=== PATIENT | male | born 1980 | race Caucasian/White ===

== ENCOUNTER 2017-02-15 22:19 | Emergency (ER) | payer SELFPAY ==
[2017-02-15 22:35] VITALS: BP 135/90; PULSE 78; RESP 18; TEMP 97.9
--- NOTE | 2017-02-15 22:49 | ED ---
Wound/Laceration HPI - General Chief Complaint: Wound/Laceration Stated Complaint: pinkie on right hand laceration Time Seen by Provider: 02/15/17 22:28 Source: patient Mode of arrival: ambulatory Limitations: no limitations - History of Present Illness Initial Comments: 36-year-old male patient presents to emergency department today for evaluation of a right hand laceration on the ulnar surface at the base of the right fifth finger. Patient states he was doing dishes, he was cleaning a glass didn't realize that it was broken and sliced his finger. Patient denies any numbness or tingling to the finger, patient has full range of motion of the finger. He states his last tetanus vaccination was within 5 years. Patient is also complaining of right lower dental pain. States that for the last couple days he has had severe pain to the area. Patient states that a while ago he broke a tooth off. States he is trying to get in to see the dentist however ibuprofen is not helping his pain at this point. He denies any difficulty swallowing or opening his mouth. He is requesting a dental block. Patient denies any recent fever, chills, shortness breath, chest pain, abdominal pain, nausea/vomiting/ diarrhea, back pain, numbness, tingling, hematuria, headache, or visual changes , or any other complaints. - Related Data Previous Rx's Medication Instructions Recorded Acetaminophen-Codeine 300-30mg 1 tab PO Q6H PRN #15 tablet 02/15/17 [Tylenol #3] Penicillin V Potassium [Pen Vee K] 500 mg PO QID #40 tab 02/15/17 Allergies Allergy/AdvReac Type Severity Reaction Status Date / Time No Known Allergies Allergy Verified 02/15/17 22:32 Review of Systems ROS Statement: Those systems with pertinent positive or pertinent negative responses have been documented in the HPI. ROS Other: All systems not noted in ROS Statement are negative. Past Medical History Past Medical History: No Reported History Additional Past Medical History / Comment(s): kidney stones History of Any Multi-Drug Resistant Organisms: None Reported Past Surgical History: Adenoidectomy, Hernia Repair, Tonsillectomy Past Psychological History: No Psychological Hx Reported Smoking Status: Never smoker Past Alcohol Use History: Occasional Past Drug Use History: None Reported General Exam Limitations: no limitations General appearance: alert, in no apparent distress Eye exam: Present: normal appearance, PERRL, EOMI. Absent: scleral icterus, conjunctival injection, periorbital swelling ENT exam: Present: normal exam, normal oropharynx, mucous membranes moist, other (Fractured tooth #32 Valdes Type 2. No surrounding erythema or gingival hyperplasia. ) Neck exam: Present: normal inspection. Absent: tenderness, meningismus, lymphadenopathy Respiratory exam: Present: normal lung sounds bilaterally. Absent: respiratory distress, wheezes, rales, rhonchi, stridor Cardiovascular Exam: Present: regular rate, normal rhythm, normal heart sounds. Absent: systolic murmur, diastolic murmur, rubs, gallop, clicks Extremities exam: Present: full ROM, normal capillary refill, other (1 cm laceration to the ulnar surface of the hand at the base of the right fifth finger. Full range of motion of the finger, skin pink, warm, and dry. Cap refill to the pinky is less than 3 seconds.). Absent: normal inspection, tenderness, pedal edema, joint swelling, calf tenderness Back exam: Present: normal inspection Neurological exam: Present: alert, oriented X3, CN II-XII intact Psychiatric exam: Present: normal affect, normal mood Skin exam: Present: warm, dry, intact, normal color. Absent: rash Course Vital Signs 02/15/17 22:32 Temperature 97.9 F Pulse Rate 78 Respiratory 18 Rate Blood Pressure 135/90 O2 Sat by Pulse 95 Oximetry Procedures - Procedures Initial comment: Oral nerve block for dental pain: Inferior alveolar nerve block performed on the right side. Landmarks palpated, 3 mL of bupivacaine was instilled. Patient tolerated procedure well with no complications. - Laceration Laceration #1 Consent Obtained: verbal consent Time Out Performed: Yes Indication: laceration Site: hand (ulnar aspect of the hand at the base of the fifth finger.) Size (cm): 1 Description: linear Depth: simple, single layer Anesthetic Used: lidocaine 1% Anesthesia Technique: local infiltration Amount (mls): 2 Pre-repair: irrigated extensively Type of Sutures: nylon Size of Sutures: 3-0, 5-0 Number of Sutures: 2 Patient Tolerated Procedure: well, no complications Medical Decision Making - Medical Decision Making 36-year-old male patient presented for evaluation of right hand laceration and right lower dental pain. 2 sutures were placed after irrigation of the hand laceration. Patient neurovascularly intact. Inferior alveolar nerve block performed for dental pain. Patient did start to have relief of pain prior to discharge. Patient was instructed to follow up with a dentist tomorrow for recheck. Given a prescription for penicillin as well as Tylenol No. 3 for pain control. Patient given laceration and suture care. Educated regarding signs and symptoms of infection. Instructed to return in 7 days for suture removal. Instructed to follow-up with his primary care physician for recheck in 1-2 days. Instructed to return really for any new, worsening, or concerning symptoms. Patient verbalized understanding and agreed with this plan. Disposition Clinical Impression: Laceration of hand, Pain, dental Disposition: HOME SELF-CARE Condition: Good Instructions: Care For Your Stitches (ED), Laceration (ED), Dental Caries (ED) , Toothache (ED) Additional Instructions: Keep wound clean and dry. Wash twice daily with warm soapy water. Do not submerse in water including sinks, pools, lakes, or ponds. Return to have your stitches removed in 7 days. Follow-up with dentist tomorrow. Follow up with primary care physician in 1-2 days for recheck. Return immediately for any new, worsening, or concerning symptoms. Prescriptions: Acetaminophen-Codeine 300-30mg [Tylenol #3] 1 tab PO Q6H PRN #15 tablet PRN Reason: Pain Penicillin V Potassium [Pen Vee K] 500 mg PO QID #40 tab Referrals: None,Stated [Primary Care Provider] - 1-2 days Time of Disposition: 23:13
[2017-02-15] MEDS ORDERED: BUPIVACAINE (PF) 0.5% 30 ML VIAL SQ STA (22:58)
== END 2017-02-15 23:20 | disposition home or self-care (01) ==
LOC: EC 22:19
DX: S61.216A Laceration without foreign body of right little finger without damage to nail, initial encounter (principal); K08.89 Other specified disorders of teeth and supporting structures; W25.XXXA Contact with sharp glass, initial encounter; Y93.G1 Activity, food preparation and clean up
CPT/HCPCS: 12001; 64400; 99282

== ENCOUNTER 2017-08-18 09:11 | Emergency (ER) | payer OTHER ==
[2017-08-18 09:15] VITALS: RESP 18
--- NOTE | 2017-08-18 09:53 | XR ---
EXAMINATION TYPE: XR wrist complete 4 views RT, XR hand complete 3 views LT DATE OF EXAM: 08/18/2017 COMPARISON: NONE HISTORY: 36-year-old male with right wrist pain, left hand pain third metacarpal area of the knuckle FINDINGS: Right Wrist: The radiocarpal and distal radioulnar joints as well as the midcarpal compartment are intact. Mild ne gative ulnar variance is noted. No acute fracture, subluxation, or dislocation seen. Left hand: No acute fracture, subluxation, or dislocation. Joint spaces throughout are maintained. IMPRESSION: 1. Right wrist: No acute osseous abnormality seen. 2. Left hand: No acute osseous abnormality seen.
--- NOTE | 2017-08-18 10:08 | ED ---
Extremity Problem HPI - General Chief complaint: Extremity Problem,Nontraumatic Stated complaint: Hands/wrist pain Time Seen by Provider: 08/18/17 09:29 Source: patient, RN notes reviewed, old records reviewed Mode of arrival: ambulatory Limitations: no limitations - History of Present Illness Initial comments: This patient is a 36-year-old male presents emergency Department chief complaint of right wrist pain and left hand pain for the past few weeks. Patient reports that he's had a right wrist injury possibly 5 years ago when she broke one of his response. Reports that over the past week he's been having increasing pain and has pain that shoots down his hand and up to his elbow. Patient reports that he also has some pain in his left third knuckle. He reports that he injured it during basketball a few weeks ago. He states when tries make discussed he does not able to fully close the middle finger. Patient states that he has no numbness or tingling at this time.Patient denies any recent fever, chills, shortness of breath, chest pain, back pain, abdominal pain, nausea vomiting, numbness or tingling, dysuria or hematuria, constipation or diarrhea, headaches or visual changes, or any other current symptoms - Related Data Previous Rx's Medication Instructions Recorded Ibuprofen 600 mg PO TID #20 tablet 08/18/17 Allergies Allergy/AdvReac Type Severity Reaction Status Date / Time No Known Allergies Allergy Verified 08/18/17 09:23 Review of Systems ROS Statement: Those systems with pertinent positive or pertinent negative responses have been documented in the HPI. ROS Other: All systems not noted in ROS Statement are negative. Past Medical History Past Medical History: No Reported History Additional Past Medical History / Comment(s): kidney stones History of Any Multi-Drug Resistant Organisms: None Reported Past Surgical History: Adenoidectomy, Hernia Repair, Tonsillectomy Past Psychological History: No Psychological Hx Reported Smoking Status: Never smoker Past Alcohol Use History: Occasional Past Drug Use History: None Reported General Exam - General Exam Comments Initial Comments: This is a well appearing 36 year old male, no distress. Limitations: no limitations General appearance: alert, in no apparent distress Head exam: Present: atraumatic, normocephalic, normal inspection Eye exam: Present: normal appearance, PERRL, EOMI. Absent: scleral icterus, conjunctival injection, periorbital swelling Respiratory exam: Present: normal lung sounds bilaterally. Absent: respiratory distress, wheezes, rales, rhonchi, stridor Cardiovascular Exam: Present: regular rate, normal rhythm, normal heart sounds. Absent: systolic murmur, diastolic murmur, rubs, gallop, clicks Extremities exam: Present: normal inspection, full ROM, normal capillary refill , other (full range of motion of bilateral wrist and hand. Patient reports pain is reporduced in wrist and hand with phalen test. Patient states that he is unbale to fully close right middle finger, however he has full range of motion except unable to alight PIP joint with others during fist clench. ). Absent: tenderness, pedal edema, joint swelling, calf tenderness Neurological exam: Present: alert, oriented X3, CN II-XII intact Psychiatric exam: Present: normal affect, normal mood Course Vital Signs 08/18/17 08/18/17 09:12 11:04 Temperature 98.1 F 98.3 F Pulse Rate 66 64 Respiratory 18 18 Rate Blood Pressure 134/83 136/74 O2 Sat by Pulse 97 98 Oximetry Medical Decision Making - Medical Decision Making This patient is a 36-year-old male presents emergency Department chief complaint of right wrist pain and left hand pain for the past few weeks. Patient reports that he's had a right wrist injury possibly 5 years ago when she broke one of his response. Reports that over the past week he's been having increasing pain and has pain that shoots down his hand and up to his elbow. Patient reports that he also has some pain in his left third knuckle. He reports that he injured it during basketball a few weeks ago. He states when tries make discussed he does not able to fully close the middle finger. At this time patient is neurovascular Pawan intact and bilateral upper extremity's. He does have what appears to be a possible mild trigger finger on the right middle finger when making a fist. Patient wrist house for range of motion. The pain is reproduced with Phalen's test. At this timeI will put patient in a strips and take into inflammatory medicine. Just got you should follow up with performance improvement specialist. All questions were answered in return parameters were discussed. - Radiology Data Radiology results: report reviewed Wrist and hand xray are negative for any acute process. Disposition Clinical Impression: Wrist pain, right, Carpal tunnel syndrome, Left hand pain Disposition: HOME SELF-CARE Condition: Good Instructions: Paresthesia (ED), Wrist Sprain (ED) Additional Instructions: Patient advised to apply ice over these areas. Follow-up with performance improvement specialist. Wear the Jovanni wrap's. Return to emergency department if any alarming signs or symptoms occur. Prescriptions: Ibuprofen 600 mg PO TID #20 tablet Referrals: None,Stated [Primary Care Provider] - 1-2 days Justice Marroquin DO [Doctor of Osteopathic Medicine] - 1-2 days Time of Disposition: 10:52
[2017-08-18 11:06] VITALS: BP 136/74; PULSE 64; TEMP 98.3
== END 2017-08-18 11:04 | disposition home or self-care (01) ==
LOC: EC 09:11
DX: G56.01 Carpal tunnel syndrome, right upper limb (principal); M79.642 Pain in left hand; M25.522 Pain in left elbow
CPT/HCPCS: 99284

== ENCOUNTER 2018-07-20 12:23 | Emergency (ER) | payer OTHER ==
[2018-07-20 12:26] VITALS: RESP 18; TEMP 97.3
--- NOTE | 2018-07-20 13:41 | XR ---
EXAMINATION TYPE: XR knee complete LT DATE OF EXAM: 07/20/2018 CLINICAL HISTORY: Left knee pain for 2 days. TECHNIQUE: Three views of the left knee are obtained. COMPARISON: None. FINDINGS: There is no acute fracture/dislocation evident in left knee. The tri-compartment joint sp aces appear within normal limits. The overlying soft tissue appears unremarkable. IMPRESSION: Unremarkable study.
--- NOTE | 2018-07-20 13:55 | ED ---
General Adult HPI - General Chief complaint: Extremity Problem,Nontraumatic Stated complaint: knee pain Time Seen by Provider: 07/20/18 12:34 Source: patient, RN notes reviewed Mode of arrival: ambulatory Limitations: no limitations - History of Present Illness Initial comments: 37-year-old male presents to the emergency department for a chief complaint of left knee pain. Patient denies any injuries. Patient states this is painful to walk on. Patient denies any fevers or chills at home. Patient states he can bend the knee but it is painful. Patient states he has been ambulating on it. Patient denies any history of gout. Patient has no other complaints at this time including shortness of breath, chest pain, abdominal pain, nausea or vomiting, headache, or visual changes. - Related Data Previous Rx's Medication Instructions Recorded Cephalexin [Keflex] 500 mg PO Q6HR 3 Days #12 cap 07/20/18 Allergies Allergy/AdvReac Type Severity Reaction Status Date / Time No Known Allergies Allergy Verified 07/20/18 12:41 Review of Systems ROS Statement: Those systems with pertinent positive or pertinent negative responses have been documented in the HPI. ROS Other: All systems not noted in ROS Statement are negative. Past Medical History Past Medical History: No Reported History Additional Past Medical History / Comment(s): kidney stones History of Any Multi-Drug Resistant Organisms: None Reported Past Surgical History: Adenoidectomy, Hernia Repair, Tonsillectomy Additional Past Surgical History / Comment(s): lithotripsy for kidney stones Past Psychological History: No Psychological Hx Reported Smoking Status: Never smoker Past Alcohol Use History: Rare Past Drug Use History: None Reported General Exam Limitations: no limitations General appearance: alert, in no apparent distress Head exam: Present: atraumatic, normocephalic, normal inspection Eye exam: Present: normal appearance, PERRL, EOMI. Absent: scleral icterus, conjunctival injection, periorbital swelling ENT exam: Present: normal exam, mucous membranes moist Neck exam: Present: normal inspection. Absent: tenderness, meningismus, lymphadenopathy Respiratory exam: Present: normal lung sounds bilaterally. Absent: respiratory distress, wheezes, rales, rhonchi, stridor Cardiovascular Exam: Present: regular rate, normal rhythm, normal heart sounds. Absent: systolic murmur, diastolic murmur, rubs, gallop, clicks Extremities exam: Present: tenderness (Tenderness noted to the superior medial aspect of the left knee where there is small area of erythema about 2 cm x 2 cm. ), normal capillary refill (capillary refill less than 2 seconds and DP pulse 2+ .), other (Patient has small 2 cm x 2 cm area of erythema noted to the left superior medial knee.). Absent: full ROM (Patient has 90 flexion of the left knee.), joint swelling (No significant edema noted to the left knee area, no increased warmth to the left knee when compared to the right knee), calf tenderness (tenderness, no erythema, edema, increased warmth noted of the left calf, negative Homans sign.) Course Vital Signs 07/20/18 12:23 Temperature 97.3 F L Pulse Rate 75 Respiratory 18 Rate Blood Pressure 157/95 O2 Sat by Pulse 96 Oximetry Medical Decision Making - Medical Decision Making 37-year-old male presents to the emergency department for a chief complaint of left knee pain. Patient did not have any injuries. No fevers or chills at home. No fever here in the emergency department. Patient is generally feeling well besides for the pain in his knee. He is ambulatory on the knee and has about 90 of flexion. No significant edema or warmth noted of the left knee. There is a small 2 cm x 2 cm area of erythema or patient has localized pain. Knee x-ray does not show any acute changes, no osteomyelitis or effusion noted. Given localized pain without any edema, increased warmth or fever I do not suspect infection of the joint. Possible small bite or area of cellulitis. Dr Ma also evaluated the knee and agrees. Patient will be given 3 days of antibiotics and will follow up with primary care. He will return if he has any worsening symptoms. Disposition Clinical Impression: Knee pain, left Disposition: HOME SELF-CARE Condition: Good Instructions (If sedation given, give patient instructions): Knee Pain (ED), Cellulitis (ED) Additional Instructions: Please take Antibiotic as directed. Please rest the left knee. Please follow- up with primary care in 1-2 days. Return if you have any worsening symptoms or fevers. Prescriptions: Cephalexin [Keflex] 500 mg PO Q6HR 3 Days #12 cap Is patient prescribed a controlled substance at d/c from ED?: No Referrals: Anyi Dacosta MD [REFERRING] - 1-2 days Time of Disposition: 13:48
[2018-07-20 14:24] VITALS: BP 115/90; PULSE 83
== END 2018-07-20 14:23 | disposition home or self-care (01) ==
LOC: EC 12:23
DX: M25.562 Pain in left knee (principal)
CPT/HCPCS: 99283

== ENCOUNTER 2018-08-17 04:29 | Emergency (ER) | payer OTHER ==
[2018-08-17 04:36] VITALS: TEMP 97.6
[2018-08-17] MEDS ORDERED: METHOCARBAMOL 750 MG TAB PO STA (05:22)
[2018-08-17 05:59] LABS: Basophils # (A) 0.1 k/uL (0-0.2); Basophils % (A) 1 %; Eosinophils # (A) 0.3 k/uL (0-0.7); Eosinophils % (A) 4 %; HCT 51.2 % (39.0-53.0); HGB 17.1 gm/dL (13.0-17.5); Lymphocytes # (A) 1.6 k/uL (1.0-4.8); Lymphocytes % (A) 22 %; MCH 29.4 pg (25.0-35.0); MCHC 33.4 g/dL (31.0-37.0); Mean Platelet Volume 6.3; Monocytes # (A) 0.5 k/uL (0-1.0); Monocytes % (A) 6 %; Neutrophils # (A) 4.6 k/uL (1.3-7.7); Neutrophils % (A) 65 %; Platelet Count 236 k/uL (150-450); RBC 5.82 m/uL (4.30-5.90); RDW 13.1 % (11.5-15.5); WBC 7.1 k/uL (3.8-10.6)
[2018-08-17 06:07] LABS: Anion Gap 7 mmol/L; Blood Urea Nitrogen 18 mg/dL (9-20); Calcium 9.5 mg/dL (8.4-10.2); Carbon Dioxide 29 mmol/L (22-30); Chloride 105 mmol/L (98-107); Glucose 102 mg/dL (74-99); Potassium 4.4 mmol/L (3.5-5.1); Sodium 141 mmol/L (137-145)
--- NOTE | 2018-08-17 06:18 | ED ---
Lower Extremity Injury HPI - General Chief Complaint: Extremity Injury, Lower Stated Complaint: R thigh pain Time Seen by Provider: 08/17/18 05:00 Source: patient Mode of arrival: ambulatory Limitations: no limitations - History of Present Illness Initial Comments: 's patient is a 37-year-old man who presents with complaint of right thigh pains. He states that it has been intermittent and feels like spasms. The intensity is moderate to severe. States that it seems to be brought on by activity and is better with rest. Patient is not able to recall any inciting injury. He has taken some ibuprofen and use warm compresses without much change. Complaint: thigh injury -: days(s) Injury: Thigh: Right Place: home Severity: moderate Improves With: rest Worsens With: movement - Related Data Previous Rx's Medication Instructions Recorded Cephalexin [Keflex] 500 mg PO Q6HR 3 Days #12 cap 07/20/18 Methocarbamol [Robaxin-750] 750 mg PO TID PRN #30 tablet 08/17/18 Allergies Allergy/AdvReac Type Severity Reaction Status Date / Time No Known Allergies Allergy Verified 08/17/18 04:35 Review of Systems ROS Statement: Those systems with pertinent positive or pertinent negative responses have been documented in the HPI. ROS Other: All systems not noted in ROS Statement are negative. Respiratory: Denies: dyspnea Cardiovascular: Denies: chest pain, palpitations, syncope Gastrointestinal: Denies: abdominal pain Musculoskeletal: Reports: as per HPI, myalgia. Denies: joint swelling, arthralgia Skin: Denies: rash Neurological: Denies: weakness, numbness Past Medical History Past Medical History: No Reported History Additional Past Medical History / Comment(s): kidney stones, History of Any Multi-Drug Resistant Organisms: None Reported Past Surgical History: Adenoidectomy, Hernia Repair, Tonsillectomy Additional Past Surgical History / Comment(s): lithotripsy for kidney stones, Past Psychological History: No Psychological Hx Reported Smoking Status: Never smoker Past Alcohol Use History: Rare Past Drug Use History: None Reported General Exam Limitations: no limitations Respiratory exam: Present: normal lung sounds bilaterally. Absent: respiratory distress, wheezes, rales, rhonchi, stridor Cardiovascular Exam: Present: regular rate, normal rhythm, normal heart sounds. Absent: systolic murmur, diastolic murmur, rubs, gallop GI/Abdominal exam: Present: soft. Absent: distended, tenderness Extremities exam: Present: normal inspection, full ROM, tenderness (Adductor group right leg), normal capillary refill. Absent: pedal edema, calf tenderness Course Vital Signs 08/17/18 08/17/18 04:32 06:36 Temperature 97.6 F Pulse Rate 65 69 Respiratory 18 20 Rate Blood Pressure 157/99 133/97 O2 Sat by Pulse 100 99 Oximetry Medical Decision Making - Lab Data Result diagrams: 08/17/18 05:40 08/17/18 05:40 Lab Results 08/17/18 08/17/18 08/17/18 Range/Units 05:40 05:40 05:40 WBC 7.1 (3.8-10.6) k/uL RBC 5.82 (4.30-5.90) m/uL Hgb 17.1 (13.0-17.5) gm/dL Hct 51.2 (39.0-53.0) % MCV 88.0 (80.0-100.0) fL MCH 29.4 (25.0-35.0) pg MCHC 33.4 (31.0-37.0) g/dL RDW 13.1 (11.5-15.5) % Plt Count 236 (150-450) k/uL Neutrophils % 65 % Lymphocytes % 22 % Monocytes % 6 % Eosinophils % 4 % Basophils % 1 % Neutrophils # 4.6 (1.3-7.7) k/uL Lymphocytes # 1.6 (1.0-4.8) k/uL Monocytes # 0.5 (0-1.0) k/uL Eosinophils # 0.3 (0-0.7) k/uL Basophils # 0.1 (0-0.2) k/uL D-Dimer 0.19 (<0.60) mg/L FEU Sodium 141 (137-145) mmol/L Potassium 4.4 (3.5-5.1) mmol/L Chloride 105 (98-107) mmol/L Carbon Dioxide 29 (22-30) mmol/L Anion Gap 7 mmol/L BUN 18 (9-20) mg/dL Creatinine 1.07 (0.66-1.25) mg/dL Est GFR (CKD-EPI)AfAm >90 (>60 ml/min/1.73 sqM) Est GFR (CKD-EPI)NonAf 88 (>60 ml/min/1.73 sqM) Glucose 102 H (74-99) mg/dL Calcium 9.5 (8.4-10.2) mg/dL Disposition Clinical Impression: Muscle spasm Disposition: HOME SELF-CARE Condition: Good Instructions (If sedation given, give patient instructions): Muscle Spasm (ED) Prescriptions: Methocarbamol [Robaxin-750] 750 mg PO TID PRN #30 tablet PRN Reason: pain Is patient prescribed a controlled substance at d/c from ED?: No Referrals: None,Stated [Primary Care Provider] - 1-2 days
[2018-08-17 06:37] VITALS: BP 133/97; PULSE 69; RESP 20
== END 2018-08-17 06:37 | disposition home or self-care (01) ==
LOC: EC 04:29
DX: M62.838 Other muscle spasm (principal)
CPT/HCPCS: 36415; 80048; 85025; 85379; 99283

== ENCOUNTER 2018-08-25 14:07 | Emergency (ER) | payer OTHER ==
[2018-08-25 14:28] VITALS: TEMP 98.3
[2018-08-25] MEDS ORDERED: ACETAMINOPHEN TAB 500 MG TAB PO STA (14:46)
[2018-08-25] MEDS ORDERED: IBUPROFEN 800 MG TAB PO STA (14:48)
--- NOTE | 2018-08-25 15:07 | ED ---
Extremity Problem HPI - General Chief complaint: Extremity Problem,Nontraumatic Stated complaint: Rt knee pain Time Seen by Provider: 08/25/18 14:36 Source: patient, RN notes reviewed, old records reviewed Mode of arrival: wheelchair Limitations: no limitations - History of Present Illness Initial comments: This is a 37-year-old male the ER for evaluation of knee pain. Patient states the knee pain is severe, difficulty with range of motion. Denies any fevers. No trauma. No prior history of similar event to that knee. He states about a week ago he had the same pain in his left knee that did resolve. He does admit to swelling of his right knee. No other pain. No shortness of breath or chest pain. No recent travel history or sick contacts. No pain to his lower leg or calf MD Complaint: extremity pain, joint swelling (Right knee) -: days(s) (3) Location: right, knee History of Same: Yes (To his left knee) Radiation: none Severity scale (1-10): 3 Quality: aching Consistency: constant Improves with: nothing Worsens with: weight bearing, walking Associated Symptoms: denies other symptoms - Related Data Home Medications Medication Instructions Recorded Confirmed No Known Home Medications 08/25/18 08/25/18 Allergies Allergy/AdvReac Type Severity Reaction Status Date / Time No Known Allergies Allergy Verified 08/25/18 14:37 Review of Systems ROS Statement: Those systems with pertinent positive or pertinent negative responses have been documented in the HPI. ROS Other: All systems not noted in ROS Statement are negative. Past Medical History Past Medical History: No Reported History Additional Past Medical History / Comment(s): kidney stones, History of Any Multi-Drug Resistant Organisms: None Reported Past Surgical History: Adenoidectomy, Hernia Repair, Tonsillectomy Additional Past Surgical History / Comment(s): lithotripsy for kidney stones, Past Psychological History: No Psychological Hx Reported Smoking Status: Never smoker Past Alcohol Use History: Rare Past Drug Use History: None Reported General Exam - General Exam Comments Initial Comments: Patient does have evidence of right knee effusion, no pain to palpation Limitations: no limitations General appearance: alert, in no apparent distress Head exam: Present: atraumatic, normocephalic, normal inspection Eye exam: Present: normal appearance, PERRL, EOMI. Absent: scleral icterus, conjunctival injection, periorbital swelling ENT exam: Present: normal exam, mucous membranes moist Neck exam: Present: normal inspection. Absent: tenderness, meningismus, lymphadenopathy Respiratory exam: Present: normal lung sounds bilaterally. Absent: respiratory distress, wheezes, rales, rhonchi, stridor Cardiovascular Exam: Present: regular rate, normal rhythm, normal heart sounds. Absent: systolic murmur, diastolic murmur, rubs, gallop, clicks GI/Abdominal exam: Present: soft, normal bowel sounds. Absent: distended, tenderness, guarding, rebound, rigid Extremities exam: Present: normal inspection, full ROM, normal capillary refill. Absent: tenderness, pedal edema, joint swelling, calf tenderness Back exam: Present: normal inspection Neurological exam: Present: alert, oriented X3, CN II-XII intact Psychiatric exam: Present: normal affect, normal mood Skin exam: Present: warm, dry, intact, normal color. Absent: rash Course Vital Signs 08/25/18 08/25/18 14:26 15:45 Temperature 98.3 F Pulse Rate 63 65 Respiratory 16 14 Rate Blood Pressure 148/107 142/104 O2 Sat by Pulse 97 98 Oximetry - Reevaluation(s) Reevaluation #1: 08/25/18 15:05 Medical record is reviewed Reevaluation #2: 08/25/18 15:05 Mild improvement in pain Medical Decision Making - Medical Decision Making 37 male the ER with right knee effusion, right knee pain. Patient given follow- up to his primary care and orthopedics if necessary. X-ray negative for traumatic injury at this time. No warmth or erythema noted on exam. Patient is able to flex his right knee - Radiology Data Radiology results: report reviewed (X-ray right knee is negative for acute disease), image reviewed Disposition Clinical Impression: Right knee pain, Effusion, right knee Disposition: HOME SELF-CARE Condition: Good Instructions (If sedation given, give patient instructions): Swollen Knee Joint (ED), Knee Pain (ED) Is patient prescribed a controlled substance at d/c from ED?: No Referrals: Surendra Steel MD [STAFF PHYSICIAN] - 1-2 days
--- NOTE | 2018-08-25 15:25 | XR ---
EXAMINATION TYPE: XR knee complete RT DATE OF EXAM: 08/25/2018 COMPARISON: NONE HISTORY: Pain TECHNIQUE: Four views are submitted. FINDINGS: Joint spaces are preserved. Osseous structures are intact. No acute fracture seen. There is a supr apatellar bursal fluid collection. IMPRESSION: 1. No acute fracture or dislocation. Suprapatellar bursal fluid collection. Correlate with MRI if th ere is concern for internal arrangement of the knee.
[2018-08-25 15:46] VITALS: BP 142/104; PULSE 65; RESP 14
== END 2018-08-25 16:09 | disposition home or self-care (01) ==
LOC: EC 14:07
DX: M25.461 Effusion, right knee (principal)
CPT/HCPCS: 99284

== ENCOUNTER 2022-11-01 00:22 | Emergency (ER) | payer BC, OTHER ==
[2022-11-01 00:28] VITALS: TEMP 97.5
[2022-11-01 01:07] LABS: Basophils % (A) 0 %; Eosinophils # (A) 0.4 k/uL (0-0.7); Eosinophils % (A) 6 %; HCT 36.3 % (39.0-53.0); HGB 12.1 gm/dL (13.0-17.5); Lymphocytes # (A) 2.6 k/uL (1.0-4.8); Lymphocytes % (A) 37 %; MCH 28.9 pg (25.0-35.0); MCHC 33.5 g/dL (31.0-37.0); MCV 86.4 fL (80.0-100.0); Monocytes # (A) 0.4 k/uL (0-1.0); Monocytes % (A) 5 %; Neutrophils # (A) 3.3 k/uL (1.3-7.7); Neutrophils % (A) 48 %; Platelet Count 66 k/uL (150-450)
[2022-11-01 01:09] LABS: ALT 40 U/L (4-49); AST 124 U/L (17-59); African American GFR (CKD) >90 (>60 ml/min/1.73 sqM); Albumin 3.8 g/dL (3.5-5.0); Alkaline Phosphatase 176 U/L (38-126); Anion Gap 14 mmol/L; Blood Urea Nitrogen 8 mg/dL (9-20); Calcium 8.7 mg/dL (8.4-10.2); Carbon Dioxide 21 mmol/L (22-30); Chloride 108 mmol/L (98-107); Glucose 103 mg/dL (74-99); Magnesium 1.8 mg/dL (1.6-2.3); Non-African American GFR(CKD) >90 (>60 ml/min/1.73 sqM); Potassium 3.7 mmol/L (3.5-5.1); Sodium 143 mmol/L (137-145); Total Bilirubin 2.5 mg/dL (0.2-1.3); Total Protein 7.8 g/dL (6.3-8.2)
[2022-11-01 01:10] LABS: INR 1.4 (<1.2); Partial Thromboplastin Time 28.1 sec (22.0-30.0); Prothrombin Time 13.7 sec (9.0-12.0)
[2022-11-01 03:00] VITALS: BP 108/61; PULSE 68; RESP 17
--- NOTE | 2022-11-01 03:46 | ED ---
Chest Pain HPI - General Chief Complaint: Chest Pain Stated Complaint: Chest pain Time Seen by Provider: 11/01/22 01:22 Source: patient Mode of arrival: wheelchair Limitations: no limitations - History of Present Illness Initial Comments: This patient is a 42-year-old man presenting with substernal chest pain that is been going on for weeks to months. He indicates substernal area. States sometimes it is worse with taking a deep breath. He does note that it sometimes is worse after lying down. Has burning sensation. Patient states he does drink alcohol fairly regularly. No dyspnea, diaphoresis, palpitations, lightheadedness or syncope. MD Complaint: chest pain -: hour(s) Onset: during rest Pain Location: substernal Pain Radiation: none Severity: moderate Quality: other (Burning) Consistency: constant Improves With: nothing Worsens With: nothing Treatments Prior to Arrival: none - Related Data Previous Rx's Medication Instructions Recorded Famotidine [Pepcid] 20 mg PO BID #14 tablet 11/01/22 Allergies Allergy/AdvReac Type Severity Reaction Status Date / Time No Known Allergies Allergy Verified 11/14/22 08:19 Review of Systems ROS Statement: Those systems with pertinent positive or pertinent negative responses have been documented in the HPI. ROS Other: All systems not noted in ROS Statement are negative. Constitutional: Denies: fever, chills Eyes: Denies: vision change Respiratory: Denies: cough, dyspnea Cardiovascular: Reports: chest pain. Denies: palpitations, orthopnea, edema, syncope Gastrointestinal: Denies: abdominal pain, nausea, vomiting, diarrhea Genitourinary: Denies: dysuria, hematuria Musculoskeletal: Denies: back pain Skin: Denies: rash Neurological: Denies: headache, weakness EKG Findings - EKG Results: EKG: interpreted by ERMD, sinus rhythm (Rate 63 bpm), normal axis, normal QRS - Blocks, [place], Hypertrophy, ST Abn: Repolarization changes or abnormalities: nonspecific abnormality, ST segment, and/or T wave, Q-T interval prolongation Past Medical History Past Medical History: No Reported History Additional Past Medical History / Comment(s): kidney stones, History of Any Multi-Drug Resistant Organisms: None Reported Past Surgical History: Adenoidectomy, Hernia Repair, Tonsillectomy Additional Past Surgical History / Comment(s): lithotripsy for kidney stones, Past Psychological History: No Psychological Hx Reported Smoking Status: Never smoker Past Alcohol Use History: Occasional Past Drug Use History: None Reported General Exam Limitations: no limitations General appearance: alert, in no apparent distress Head exam: Present: atraumatic, normocephalic Eye exam: Present: normal appearance. Absent: scleral icterus, conjunctival injection ENT exam: Present: normal oropharynx Neck exam: Present: normal inspection Respiratory exam: Present: normal lung sounds bilaterally. Absent: respiratory distress, wheezes, rales, rhonchi, stridor Cardiovascular Exam: Present: regular rate, normal rhythm, normal heart sounds. Absent: systolic murmur, diastolic murmur, rubs, gallop GI/Abdominal exam: Present: soft. Absent: distended, tenderness, guarding, rebo und, rigid, mass Extremities exam: Present: normal inspection, normal capillary refill. Absent: pedal edema, calf tenderness Back exam: Present: normal inspection. Absent: CVA tenderness (R), CVA tenderness (L) Neurological exam: Present: alert Skin exam: Present: warm, dry, intact, normal color. Absent: rash Course Vital Signs 11/01/22 11/01/22 00:24 02:52 Temperature 97.5 F L Pulse Rate 62 68 Respiratory 15 17 Rate Blood Pressure 124/81 108/61 O2 Sat by Pulse 95 98 Oximetry Chest Pain MDM - MDM This patient is a 42-year-old man who presents with substernal chest pain. History and physical exam consistent with underlying reflux. The patient was feeling better and didn't want to go home. We discussed appropriate further care and follow-up including recommendation to see cardiology have a stress test, given that he has underlying risk factor. I would did offer to admit to have that done here, but patient would not like to stay and the symptoms and physical all point towards reflux. The patient did have 2 view chest x-ray which I interpreted as being negative for acute infiltrate, pneumothorax, or congestive heart failure Was pt. sent in by a medical professional or institution (ROBERT Hoang, TESTING SPECIALIST, urgent care, hospital, or usp...) When possible be specific @ -[No] Did you speak to anyone other than the patient for history (EMS, parent, family, police, friend...)? What history was obtained from this source @ -[No] Did you review nursing and triage notes (agree or disagree)? Why? @ -[I reviewed and agree with nursing and triage notes] Were old charts reviewed (outside hosp., previous admission, EMS record, old EKG, old radiological studies, urgent care reports/EKG's, usp records)? Report findings @ -[No old charts were reviewed] Differential Diagnosis (chest pain, altered mental status, abdominal pain women, abdominal pain men, vaginal bleeding, weakness, fever, dyspnea, syncope, headache, dizziness, GI bleed, back pain, seizure, CVA, palpatations, mental health, musculoskeletal)? @ -[Differential Chest Pain: Stable Angina, Unstable Angina, STEMI, NSTEMI Aortic Dissection, Pneumothorax, Musculoskeletal, Esophageal Spasm GERD, Cholecystitis, Pancreatitis, Zoster, this is not meant to be an all-inclusive list. EKG interpreted by me (3pts min.). @ -[As above] X-rays interpreted by me (1pt min.). @ -[As above CT interpreted by me (1pt min.). @ -[None done] U/S interpreted by me (1pt. min.). @ -[None done] What testing was considered but not performed or refused? (CT, X-rays, U/S, labs)? Why? @ -[None] What meds were considered but not given or refused? Why? @ -[None] Did you discuss the management of the patient with other professionals (professionals i.e. , PA, TESTING SPECIALIST, lab, RT, psych nurse, director social, hogshead mat inspector, teacher, assignment officer, case packer and sealer)? Give summary @ -[No] Was smoking cessation discussed for >3mins.? @ -[No] Was critical care preformed (if so, how long)? @ -[No] Were there social determinants of health that impacted care today? How? (Homelessness, low income, unemployed, alcoholism, drug addiction, transportation, low edu. Level, literacy, decrease access to med. care, senior care, rehab)? @ -[No] Was there de-escalation of care discussed even if they declined (Discuss DNR or withdrawal of care, Hospice)? DNR status @ -[No] What co-morbidities impacted this encounter? (DM, HTN, Smoking, COPD, CAD, Cancer, CVA, ARF, Chemo, Hep., AIDS, mental health diagnosis, sleep apnea, morbid obesity)? @ -[None] Was patient admitted / discharged? Hospital course, mention meds given and route, prescriptions, significant lab abnormalities, going to OR and other pertinent info. @ -[Patient is discharged with plan to have close follow-up with cardiology for stress test Undiagnosed new problem with uncertain prognosis? @ -[No] Drug Therapy requiring intensive monitoring for toxicity (Heparin, Nitro, Insulin, Cardizem)? @ -[No] Were any procedures done? @ -[No] Diagnosis/symptom? @ -[Acute chest pain, uncomplicated Alcohol intoxication, acute, uncomplicated Acute, or Chronic, or Acute on Chronic? @ -[default] Uncomplicated (without systemic symptoms) or Complicated (systemic symptoms)? @ -[default] Side effects of treatment? @ -[No] Exacerbation, Progression, or Severe Exacerbation? @ -[No] Poses a threat to life or bodily function? How? (Chest pain, [place], [place], pneumonia, PE, COPD, DKA, ARF, appy, cholecystitis, CVA, Diverticulitis, Homicidal, Suicidal, threat to staff... and all critical care pts) @ -[No] Disposition Clinical Impression: Chest pain, Alcohol intoxication Disposition: HOME SELF-CARE Condition: Good Instructions (If sedation given, give patient instructions): Chest Pain (ED) Prescriptions: Famotidine [Pepcid] 20 mg PO BID #14 tablet Is patient prescribed a controlled substance at d/c from ED?: No Referrals: None,Stated [Primary Care Provider] - 1-2 days
--- NOTE | 2022-11-01 06:16 | XR ---
EXAM: XR Chest, 2 Views CLINICAL HISTORY: ITS.REASON XR Reason: Chest Pain TECHNIQUE: Frontal and lateral views of the chest. COMPARISON: No relevant prior studies available. IMPRESSION: 1. No acute cardiopulmonary abnormality.
== END 2022-11-01 04:06 | disposition home or self-care (01) ==
LOC: EC 00:22
DX: R07.9 Chest pain, unspecified (principal); F10.129 Alcohol abuse with intoxication, unspecified
CPT/HCPCS: 36415; 71046; 80053; 80320; 83735; 84484; 85025; 85610; 85730; 93005; 99285

== ENCOUNTER 2022-11-14 08:15 | Emergency (ER) | payer OTHER, BC ==
[2022-11-14 08:19] VITALS: PULSE 65
--- NOTE | 2022-11-14 08:53 | ED ---
General Adult HPI - General Chief complaint: Extremity Injury, Lower Stated complaint: Left Knee Injury Time Seen by Provider: 11/14/22 08:25 Source: patient, RN notes reviewed, old records reviewed Mode of arrival: ambulatory Limitations: no limitations - History of Present Illness Initial comments: This is a 42-year-old male who presents emergency Department complaining of left knee pain. Patient states he's had 2 previous surgeries on that knee. Patient states he was at work today and the palate fell onto the lateral aspect of the left knee and ever since then it's been hurting. Patient has noticed a little swelling on the upper aspect of the knee. Patient denies any ankle pain or any foot pain. Patient denies any other injury at this time. - Related Data Previous Rx's Medication Instructions Recorded Famotidine [Pepcid] 20 mg PO BID #14 tablet 11/01/22 Allergies Allergy/AdvReac Type Severity Reaction Status Date / Time No Known Allergies Allergy Verified 11/14/22 08:19 Review of Systems ROS Statement: Those systems with pertinent positive or pertinent negative responses have been documented in the HPI. ROS Other: All systems not noted in ROS Statement are negative. Past Medical History Past Medical History: No Reported History Additional Past Medical History / Comment(s): kidney stones, History of Any Multi-Drug Resistant Organisms: None Reported Past Surgical History: Adenoidectomy, Hernia Repair, Orthopedic Surgery, Tonsillectomy Additional Past Surgical History / Comment(s): lithotripsy for kidney stones, Past Psychological History: No Psychological Hx Reported Smoking Status: Never smoker Past Alcohol Use History: Occasional Past Drug Use History: None Reported General Exam - General Exam Comments Initial Comments: GENERAL Patient is well-developed and well-nourished. Patient is in mild distress. EYES Patient's pupils are equal and round. Extraocular motion is intact SKIN Unremarkable NEURO The patient is alert and oriented 3 PYSCH Patient has normal interpersonal interactions. MUSCULOSKELETAL Patient has a little effusion on the left knee. Patient has no ligament laxity that I can note. Patient has no tib-fib tenderness. Limitations: no limitations Course Vital Signs 11/14/22 08:16 Temperature 98 F Pulse Rate 65 Respiratory 18 Rate O2 Sat by Pulse 97 Oximetry Medical Decision Making - Medical Decision Making Was pt. sent in by a medical professional or institution (, PA, AUTO SERVICER, urgent care, hospital, or [facility]...) When possible be specific @ -No Did you speak to anyone other than the patient for history (EMS, parent, family, police, friend...)? What history was obtained from this source @ -No Did you review nursing and triage notes (agree or disagree)? Why? @ -I reviewed and agree with nursing and triage notes Were old charts reviewed (outside hosp., previous admission, EMS record, old EKG, old radiological studies, urgent care reports/EKG's, [facility] records)? Report findings @ -No old charts were reviewed Differential Diagnosis (chest pain, altered mental status, abdominal pain women, abdominal pain men, vaginal bleeding, weakness, fever, dyspnea, syncope, headache, dizziness, GI bleed, back pain, seizure, CVA, palpatations, mental health, musculoskeletal)? @ -Differential Musculoskeletal Muscular strain, contusion, ligament sprain, fracture, arthritis, septic arthritis, bursitis, cellulitis, muscle spasm, nerve compression, DVT, arterial occlusion, herpes zoster, electrolyte abnormality, tumor.... This is not meant to be in all inclusive list EKG interpreted by me (3pts min.). @ -As above X-rays interpreted by me (1pt min.). @ -X-ray was interpreted by myself shows no acute fracture. Patient has an effusion. CT interpreted by me (1pt min.). @ -None done U/S interpreted by me (1pt. min.). @ -None done What testing was considered but not performed or refused? (CT, X-rays, U/S, labs)? Why? @ -None What meds were considered but not given or refused? Why? @ -None Did you discuss the management of the patient with other professionals (professionals i.e. , PA, AUTO SERVICER, lab, RT, psych nurse, social studies teacher, classification inspector, teacher, correctional officer, bilingual patient support caseworker)? Give summary @ -No Was smoking cessation discussed for >3mins.? @ -No Was critical care preformed (if so, how long)? @ -No Were there social determinants of health that impacted care today? How? (Homelessness, low income, unemployed, alcoholism, drug addiction, transportation, low edu. Level, literacy, decrease access to med. care, care home, rehab)? @ -No Was there de-escalation of care discussed even if they declined (Discuss DNR or withdrawal of care, Hospice)? DNR status @ -No What co-morbidities impacted this encounter? (DM, HTN, Smoking, COPD, CAD, [place], CVA, ARF, Chemo, Hep., AIDS, mental health diagnosis, sleep apnea, morbid obesity)? @ -None Was patient admitted / discharged? Hospital course, mention meds given and route, prescriptions, significant lab abnormalities, going to OR and other pertinent info. @ -Patient had x-rays that showed no acute fracture however there was no effusion. Patient will follow-up with orthopedic. Undiagnosed new problem with uncertain prognosis? @ -No Drug Therapy requiring intensive monitoring for toxicity (Heparin, Nitro, Insulin, Cardizem)? @ -No Were any procedures done? @ -[No] Diagnosis/symptom? @ -Ligamentous injury knee Acute, or Chronic, or Acute on Chronic? @ -Acute Uncomplicated (without systemic symptoms) or Complicated (systemic symptoms)? @ -[default] Side effects of treatment? @ -[No] Exacerbation, Progression, or Severe Exacerbation? @ -[No] Poses a threat to life or bodily function? How? (Chest pain, [place], [place], pneumonia, PE, COPD, DKA, ARF, appy, cholecystitis, CVA, Diverticulitis, Homicidal, Suicidal, threat to staff... and all critical care pts) @ -[No] Disposition Clinical Impression: Effusion of knee, Knee sprain Disposition: HOME SELF-CARE Instructions (If sedation given, give patient instructions): Knee Sprain (ED) Is patient prescribed a controlled substance at d/c from ED?: No Referrals: None,Stated [Primary Care Provider] - 1-2 days Time of Disposition: 09:42
--- NOTE | 2022-11-14 09:11 | XR ---
EXAMINATION TYPE: XR knee complete LT DATE OF EXAM: 11/14/2022 CLINICAL HISTORY: Fall injury with pain TECHNIQUE: Three views of the left knee are obtained. COMPARISON: Left knee x-ray July 20, 2018 FINDINGS: There is no acute fracture/dislocation evident in left knee. The tri-compartment joint sp aces appear within normal limits. Increased density left suprapatellar bursa consistent with large henriquez prapatellar joint effusion is new from prior. IMPRESSION: As above.
[2022-11-14 10:12] VITALS: BP 127/79; RESP 16; TEMP 97.6
== END 2022-11-14 10:12 | disposition home or self-care (01) ==
LOC: EC 08:15
DX: S83.92XA Sprain of unspecified site of left knee, initial encounter (principal); X58.XXXA Exposure to other specified factors, initial encounter; Y99.0 Civilian activity done for income or pay
CPT/HCPCS: 99283

== ENCOUNTER 2022-12-21 17:16 | Emergency (ER) | payer BC ==
[2022-12-21 17:43] VITALS: RESP 18; TEMP 97.6
[2022-12-21 19:08] LABS: Appearance,Urine Cloudy (Clear); Bacteria,Urine Occasional /hpf; Bilirubin,Urine Negative (Negative); Blood,Urine Large (Negative); Color,Urine Light Red; Glucose,Urine (UA) Negative (Negative); Ketones,Urine Negative (Negative); Leukocyte Esterase,Urine Negative (Negative); Mucus,Urine Rare /hpf; Nitrite,Urine Negative (Negative); PH, Urine 5.5 (5.0-8.0); Protein,Urine 1+ (Negative); RBC,Urine >182 /hpf (0-5); Specific Gravity,Urine 1.007 (1.001-1.035); Urobilinogen,Urine <2.0 mg/dL (<2.0); WBC,Urine <1 /hpf (0-5)
--- NOTE | 2022-12-21 19:19 | CT ---
EXAMINATION TYPE: CT abdomen pelvis wo con CT DLP: 789.9 mGycm, Automated exposure control for dose reduction was used. DATE OF EXAM: 12/21/2022 7:07 PM COMPARISON: None. CLINICAL INDICATION:Male, 42 years old with history of hematuria/flank pain; hematuria/ flank pain TECHNIQUE: Axial CT of the abdomen and pelvis. Sagittal and coronal reformats were created on a [employer] workstation. Contrast used: mL of , (none if empty) Oral contrast used: without Oral Contrast (none if empty) FINDINGS: LOWER CHEST: Unremarkable ABDOMEN LIVER: Nodular contour to the liver. GALLBLADDER AND BILE DUCTS: Unremarkable. PANCREAS: Unremarkable. SPLEEN: Enlarged measuring up to 16.6 cm in caudocranial dimension. ADRENAL GLANDS: Unremarkable. KIDNEYS AND URETERS: Scattered renal calculi bilaterally up to 3 mm. No evidence for obstructive urop athy. PELVIS BLADDER: Unremarkable REPRODUCTIVE: Unremarkable. ABDOMEN & PELVIS STOMACH AND BOWEL: No evidence of bowel obstruction. Scattered colonic diverticula. PERITONEUM/RETROPERITONEUM: No evidence of pneumoperitoneum or free fluid. VASCULATURE: No evidence of aortic aneurysm. Varicosities in the anterior medial thighs bilaterally r ecanalization of the paraumbilical vein. MUSCULOSKELETAL: No acute osseous abnormalities LYMPH NODES: No gross evidence for lymphadenopathy. SOFT TISSUE/ABDOMINAL WALL: Fat-containing left inguinal hernia. IMPRESSION: 1. Bilateral nonobstructing renal calculi, no evidence of obstructive uropathy. 2. Hepatic cirrhosis with evidence of portal hypertension.
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
[2022-12-21] MEDS ORDERED: ACET/COD 300 MG/30 MG STARTER PACK 6 TAB BTL PO STA (19:45)
[2022-12-21 19:57] VITALS: BP 121/69; PULSE 55
== END 2022-12-21 19:57 | disposition home or self-care (01) ==
LOC: EC 17:16
DX: Z04.3 Encounter for examination and observation following other accident (principal); N20.0 Calculus of kidney; K74.60 Unspecified cirrhosis of liver; V89.2XXA Person injured in unspecified motor-vehicle accident, traffic, initial encounter
CPT/HCPCS: 71046; 72050; 74176; 81001; 99284

== ENCOUNTER 2023-07-09 09:52 | Emergency (ER) | payer BC ==
[2023-07-09] MEDS ORDERED: SODIUM CHLORIDE 0.9% 1,000 ML IV STA (10:35)
[2023-07-09] MEDS ORDERED: KETOROLAC 15 MG/ML 1 ML VIAL IVP STA (10:36)
--- NOTE | 2023-07-09 10:50 | ED ---
Abdominal Pain HPI - General Chief Complaint: Abdominal Pain Stated Complaint: Abd Pain Time Seen by Provider: 07/09/23 10:20 Source: patient Mode of arrival: ambulatory Limitations: no limitations - History of Present Illness Initial Comments: Patient is a male presented ER chief complaint abdominal pain. Patient states going on for the past and has been gradually getting worse. Patient does report he quit drinking beer about a month ago. Patient also does report that he has been coughing and has been having some blood-tinged sputum. Patient denies any chest pain or shortness of breath with exertion. Patient does report that he has had recent diarrhea and episode of vomiting due to coughing. Patient denies any fevers or chills but does state that he has been waking up in the middle the night with sweats. Patient denies any unintentional weight loss. Family, at bedside, reports he does appear jaundiced the past couple of weeks. Patient denies any urinary complaints, abdominal surgeries, melena, bright red blood in stool. - Related Data Home Medications Medication Instructions Recorded Confirmed Acetaminophen Tab [Tylenol Tab] 500 mg PO Q6HR PRN 07/09/23 07/09/23 Ibuprofen [Motrin Ib] 600 mg PO Q8H PRN 07/09/23 07/09/23 Allergies Allergy/AdvReac Type Severity Reaction Status Date / Time No Known Allergies Allergy Verified 07/09/23 12:17 Review of Systems ROS Statement: Those systems with pertinent positive or pertinent negative responses have been documented in the HPI. ROS Other: All systems not noted in ROS Statement are negative. Past Medical History Past Medical History: No Reported History Additional Past Medical History / Comment(s): kidney stones, History of Any Multi-Drug Resistant Organisms: None Reported Past Surgical History: Adenoidectomy, Hernia Repair, Orthopedic Surgery, Tonsillectomy Additional Past Surgical History / Comment(s): lithotripsy for kidney stones, Past Psychological History: No Psychological Hx Reported Smoking Status: Never smoker Past Alcohol Use History: Occasional Past Drug Use History: None Reported General Exam Limitations: no limitations General appearance: alert, in no apparent distress, other (Patient appears uncomfortable and mildy jaundice) Head exam: Present: atraumatic, normocephalic, normal inspection ENT exam: Present: normal exam, normal oropharynx, mucous membranes moist, TM's normal bilaterally Neck exam: Present: normal inspection. Absent: tenderness, meningismus, lymphadenopathy Respiratory exam: Present: normal lung sounds bilaterally. Absent: respiratory distress, wheezes, rales, rhonchi, stridor Cardiovascular Exam: Present: regular rate, normal rhythm, normal heart sounds. Absent: systolic murmur, diastolic murmur, rubs, gallop, clicks GI/Abdominal exam: Present: soft, tenderness (Generalized), normal bowel sounds Extremities exam: Present: normal inspection, full ROM, normal capillary refill. Absent: tenderness, pedal edema, joint swelling, calf tenderness Neurological exam: Present: alert, oriented X3, CN II-XII intact Psychiatric exam: Present: normal affect, normal mood Skin exam: Present: warm, dry, other (Eyes and skin appear jaundiced) Course Vital Signs 07/09/23 07/09/23 10:05 14:00 Temperature 98.2 F 98.7 F Pulse Rate 70 76 Respiratory 18 16 Rate Blood Pressure 129/70 122/76 O2 Sat by Pulse 98 98 Oximetry Medical Decision Making - Medical Decision Making Was pt. sent in by a medical professional or institution (, PA, ETL DEVELOPER, urgent care, hospital, or custodial...) When possible be specific @ -No Did you speak to anyone other than the patient for history (EMS, parent, family, police, friend...)? What history was obtained from this source @ -No Did you review nursing and triage notes (agree or disagree)? Why? @ -I reviewed and agree with nursing and triage notes Were old charts reviewed (outside hosp., previous admission, EMS record, old EKG, old radiological studies, urgent care reports/EKG's, custodial records)? Report findings @ -No old charts were reviewed Differential Diagnosis (chest pain, altered mental status, abdominal pain women, abdominal pain men, vaginal bleeding, weakness, fever, dyspnea, syncope, headache, dizziness, GI bleed, back pain, seizure, CVA, palpatations, mental health, musculoskeletal)? @ -Differential Abdominal Pain Men: Appendicitis, cholecystitis, diverti culosis, ischemic bowel, pancreatitis, hepatitis, UTI, gastroenteritis, AAA, incarcerated hernia, bowel obstruction, constipation, inflammatory bowel, hepatitis, peptic ulcer disease, splenic infarction, perforated viscus, testicular torsion, this is not meant to be an all-inclusive list EKG interpreted by me (3pts min.). @ -As above X-rays interpreted by me (1pt min.). @ -Chest x-ray interpreted by me shows no acute cardiopulmonary process. CT interpreted by me (1pt min.). @ -CT abdomen and pelvis shows bilateral renal calculi with no evidence of ureteral stones or hydronephrosis. There is hepatic cirrhotic changes with portal hypertension. Mild mesenteric edema with mild fluid in right abdomen and pelvis. U/S interpreted by me (1pt. min.). @ -None done What testing was considered but not performed or refused? (CT, X-rays, U/S, labs)? Why? @ -None What meds were considered but not given or refused? Why? @ -None Did you discuss the management of the patient with other professionals (professionals i.e. , PA, ETL DEVELOPER, lab, RT, psych nurse, group social worker, airline ticket agent, teacher, tactical response group officer, social work case manager)? Give summary @ -No Was smoking cessation discussed for >3mins.? @ -No Was critical care preformed (if so, how long)? @ -No Were there social determinants of health that impacted care today? How? (Homelessness, low income, unemployed, alcoholism, drug addiction, transportation, low edu. Level, literacy, decrease access to med. care, intermediate, rehab)? @ -No Was there de-escalation of care discussed even if they declined (Discuss DNR or withdrawal of care, Hospice)? DNR status @ -No What co-morbidities impacted this encounter? (DM, HTN, Smoking, COPD, CAD, Cancer, CVA, ARF, Chemo, Hep., AIDS, mental health diagnosis, sleep apnea, morbid obesity)? @ -None Was patient admitted / discharged? Hospital course, mention meds given and route, prescriptions, significant lab abnormalities, going to OR and other per tinent info. @ -Discharge. Patient is a 42-year-old female presented ER with chief complaint abdominal pain. Vitals stable. His physical exam were completed. Patient appeared jaundice and ill. Patient with no signs of acute distress. EKGs shows no acute signs of infarct or ischemia. Labs obtained in the ER were significant for Hgb 11.3, PLT 50, bilirubin of 3.8, AST 101, Alk phos 237. UA was negative for signs of infection. Chest x-ray showed no acute process. Covi d, influenza, RSV negative. CT showed findings of liver cirrhosis and mesenteric edema with mild fluid. There is also bilateral renal calculi present. Elevated liver enzymes, low platelets, and CT findings can be contributed to patient's alcohol use. Patient received 1 L IV fluids and Toradol for symptom control in the ER. I discussed the imaging findings with the patient and at bedside. I advised patient to avoid hepatotoxic agents like Tylenol and alcohol. I suggested he follow up with GI and find a primary care physician. Referral for Dr. Franco was given. Return parameters were discussed. Patient was discharged in stable condition with follow-up to GI/PCP. Patient expressed understanding and agreement with plan. Undiagnosed new problem with uncertain prognosis? @ -No Drug Therapy requiring intensive monitoring for toxicity (Heparin, Nitro, Insulin, Cardizem)? @ -No Were any procedures done? @ -No Diagnosis/symptom? @ -Liver cirrhosis with portal hypertension Acute, or Chronic, or Acute on Chronic? @ -Chronic Uncomplicated (without systemic symptoms) or Complicated (systemic symptoms)? @ -Complicated Side effects of treatment? @ -No Exacerbation, Progression, or Severe Exacerbation? @ -No Poses a threat to life or bodily function? How? (Chest pain, [place], [place], pneumonia, PE, COPD, DKA, ARF, appy, cholecystitis, CVA, Diverticulitis, Homicidal, Suicidal, threat to staff... and all critical care pts) @ -Yes, liver cirrhosis can lead to a building up to toxins in blood which can be life threatening. - Lab Data Result diagrams: 07/09/23 11:34 07/09/23 11:34 Lab Results 07/09/23 07/09/23 07/09/23 Range/Units 11:34 11:34 11:34 WBC 3.9 (3.8-10.6) k/uL RBC 3.72 L (4.30-5.90) m/uL Hgb 11.3 L (13.0-17.5) gm/dL Hct 33.2 L (39.0-53.0) % MCV 89.4 (80.0-100.0) fL MCH 30.4 (25.0-35.0) pg MCHC 34.0 (31.0-37.0) g/dL RDW 15.2 (11.5-15.5) % Plt Count 50 L (150-450) k/uL MPV 8.6 Neutrophils % 53 % Lymphocytes % 34 % Monocytes % 6 % Eosinophils % 4 % Basophils % 0 % Neutrophils # 2.0 (1.3-7.7) k/uL Lymphocytes # 1.3 (1.0-4.8) k/uL Monocytes # 0.2 (0-1.0) k/uL Eosinophils # 0.2 (0-0.7) k/uL Basophils # 0.0 (0-0.2) k/uL Sodium 140 (137-145) mmol/L Potassium 3.8 (3.5-5.1) mmol/L Chloride 109 H (98-107) mmol/L Carbon Dioxide 22 (22-30) mmol/L Anion Gap 9 mmol/L BUN 12 (9-20) mg/dL Creatinine 0.82 (0.66-1.25) mg/dL Est GFR (CKD-EPI)AfAm >90 (>60 ml/min/1.73 sqM) Est GFR (CKD-EPI)NonAf >90 (>60 ml/min/1.73 sqM) Glucose 83 (74-99) mg/dL Plasma Lactic Acid [place] (0.7-2.0) mmol/L Calcium 8.2 L (8.4-10.2) mg/dL Total Bilirubin 3.8 H (0.2-1.3) mg/dL AST 101 H (17-59) U/L ALT 48 (4-49) U/L Alkaline Phosphatase 237 H (38-126) U/L Total Protein 6.8 (6.3-8.2) g/dL Albumin 2.8 L (3.5-5.0) g/dL Amylase 96 (30-110) U/L Lipase 198 (23-300) U/L Urine Color Yellow Urine Appearance Clear (Clear) Urine pH 6.5 (5.0-8.0) Ur Specific [place] >1.050 H (1.001-1.035) Urine Protein Trace H (Negative) Urine Glucose (UA) Negative (Negative) Urine Ketones Negative (Negative) Urine Blood Large H (Negative) Urine Nitrite Negative (Negative) Urine Bilirubin Negative (Negative) Urine Urobilinogen 2.0 (<2.0) mg/dL Ur Leukocyte Esterase Negative (Negative) Urine RBC >182 H (0-5) /hpf Urine WBC 3 (0-5) /hpf Urine Mucus Many H (None) /hpf Influenza Type A (PCR) (Not Detectd) Influenza Type B (PCR) (Not Detectd) RSV (PCR) (Not Detectd) SARS-CoV-2 (PCR) (Not Detectd) 07/09/23 07/09/23 Range/Units 11:34 11:34 WBC (3.8-10.6) k/uL RBC (4.30-5.90) m/uL Hgb (13.0-17.5) gm/dL Hct (39.0-53.0) % MCV (80.0-100.0) fL MCH (25.0-35.0) pg MCHC (31.0-37.0) g/dL RDW (11.5-15.5) % Plt Count (150-450) k/uL MPV Neutrophils % % Lymphocytes % % Monocytes % % Eosinophils % % Basophils % % Neutrophils # (1.3-7.7) k/uL Lymphocytes # (1.0-4.8) k/uL Monocytes # (0-1.0) k/uL Eosinophils # (0-0.7) k/uL Basophils # (0-0.2) k/uL Sodium (137-145) mmol/L Potassium (3.5-5.1) mmol/L Chloride (98-107) mmol/L Carbon Dioxide (22-30) mmol/L Anion Gap mmol/L BUN (9-20) mg/dL Creatinine (0.66-1.25) mg/dL Est GFR (CKD-EPI)AfAm (>60 ml/min/1.73 sqM) Est GFR (CKD-EPI)NonAf (>60 ml/min/1.73 sqM) Glucose (74-99) mg/dL Plasma Lactic Acid [place] 1.3 (0.7-2.0) mmol/L Calcium (8.4-10.2) mg/dL Total Bilirubin (0.2-1.3) mg/dL AST (17-59) U/L ALT (4-49) U/L Alkaline Phosphatase (38-126) U/L Total Protein (6.3-8.2) g/dL Albumin (3.5-5.0) g/dL Amylase (30-110) U/L Lipase (23-300) U/L Urine Color Urine Appearance (Clear) Urine pH (5.0-8.0) Ur Specific [place] (1.001-1.035) Urine Protein (Negative) Urine Glucose (UA) (Negative) Urine Ketones (Negative) Urine Blood (Negative) Urine Nitrite (Negative) Urine Bilirubin (Negative) Urine Urobilinogen (<2.0) mg/dL Ur Leukocyte Esterase (Negative) Urine RBC (0-5) /hpf Urine WBC (0-5) /hpf Urine Mucus (None) /hpf Influenza Type A (PCR) Not Detected (Not Detectd) Influenza Type B (PCR) Not Detected (Not Detectd) RSV (PCR) Not Detected (Not Detectd) SARS-CoV-2 (PCR) Not Detected (Not Detectd) - EKG Data -: EKG Interpreted by Me EKG Comments: EKG taken at 13:01 shows sinus rhythm with inverted Q waves in lead 3 and V3. Ventricular rate 60, ID interval 162, QRS duration 101, QT/QTC 472/473. - Radiology Data Radiology results: report reviewed, image reviewed Disposition Clinical Impression: Abdominal pain, Alcoholic cirrhosis Disposition: HOME SELF-CARE Condition: Stable Instructions (If sedation given, give patient instructions): Cirrhosis (ED), Abdominal Pain (ED) Additional Instructions: Please avoid hepatotoxic agents including Tylenol and alcohol. Follow-up with GI as soon as possible. Please follow-up with your primary care physician. Return to the ER for any new or worsening symptoms. Is patient prescribed a controlled substance at d/c from ED?: No Referrals: None,Stated [Primary Care Provider] - 1-2 days Anna Franco MD [STAFF PHYSICIAN] - 1-2 days Time of Disposition: 13:26
--- NOTE | 2023-07-09 11:49 | XR ---
EXAMINATION TYPE: XR chest 2V DATE OF EXAM: 07/09/2023 COMPARISON: 12/21/2022 INDICATION: Cough TECHNIQUE: Frontal and lateral views of the chest are obtained. FINDINGS: The heart size is normal. The pulmonary vasculature is normal. The lungs are clear. IMPRESSION: 1. No acute pulmonary process.
[2023-07-09 11:53] LABS: Basophils % (A) 0 %; Eosinophils # (A) 0.2 k/uL (0-0.7); Eosinophils % (A) 4 %; HCT 33.2 % (39.0-53.0); HGB 11.3 gm/dL (13.0-17.5); Lymphocytes # (A) 1.3 k/uL (1.0-4.8); Lymphocytes % (A) 34 %; MCH 30.4 pg (25.0-35.0); MCV 89.4 fL (80.0-100.0); Mean Platelet Volume 8.6; Monocytes # (A) 0.2 k/uL (0-1.0); Monocytes % (A) 6 %; Neutrophils % (A) 53 %; RBC 3.72 m/uL (4.30-5.90); RDW 15.2 % (11.5-15.5); WBC 3.9 k/uL (3.8-10.6)
[2023-07-09 12:09] LABS: ALT 48 U/L (4-49); AST 101 U/L (17-59); African American GFR (CKD) >90 (>60 ml/min/1.73 sqM); Albumin 2.8 g/dL (3.5-5.0); Alkaline Phosphatase 237 U/L (38-126); Amylase 96 U/L (30-110); Anion Gap 9 mmol/L; Blood Urea Nitrogen 12 mg/dL (9-20); Calcium 8.2 mg/dL (8.4-10.2); Carbon Dioxide 22 mmol/L (22-30); Chloride 109 mmol/L (98-107); Glucose 83 mg/dL (74-99); Lipase 198 U/L (23-300); Non-African American GFR(CKD) >90 (>60 ml/min/1.73 sqM); Potassium 3.8 mmol/L (3.5-5.1); Sodium 140 mmol/L (137-145); Total Bilirubin 3.8 mg/dL (0.2-1.3); Total Protein 6.8 g/dL (6.3-8.2)
[2023-07-09 12:16] LABS: Appearance,Urine Clear (Clear); Bilirubin,Urine Negative (Negative); Blood,Urine Large (Negative); Color,Urine Yellow; Glucose,Urine (UA) Negative (Negative); Ketones,Urine Negative (Negative); Leukocyte Esterase,Urine Negative (Negative); Mucus,Urine Many /hpf; Nitrite,Urine Negative (Negative); PH, Urine 6.5 (5.0-8.0); Protein,Urine Trace (Negative); RBC,Urine >182 /hpf (0-5); WBC,Urine 3 /hpf (0-5)
[2023-07-09 12:17] LABS: Specific Gravity,Urine >1.050 (1.001-1.035)
--- NOTE | 2023-07-09 12:59 | CT ---
EXAMINATION TYPE: CT abdomen pelvis w con CT DLP: 918.4 mGycm, Automated exposure control for dose reduction was used. DATE OF EXAM: 07/09/2023 11:34 AM COMPARISON: 12/21/2022 CLINICAL INDICATION:Male, 42 years old with history of abdominal pain; abd pain TECHNIQUE: Axial CT of the abdomen and pelvis. Sagittal and coronal reformats were created on a [employer] workstation. Contrast used:100 mL of Isovue 300 with IV Contrast, (none if empty) Oral contrast used: without Oral Contrast (none if empty) FINDINGS: LOWER CHEST: Lung bases are clear. Heart size upper normal. There is mild/moderate bilateral gynecoma stia. ABDOMEN LIVER: Slightly scalloped contour of the liver suggesting cirrhotic hepatic morphology. Slightly hete rogeneous appearance of the parenchymal without focal mass demonstrated. The portal veins are enhanci ng and prominent. The spleen is enlarged to 14.4 cm and the splenic vein appears engorged. Umbilical vein is recanalized and there are extensive venous collaterals in the anterior abdomen and pelvis. GALLBLADDER AND BILE DUCTS: Unremarkable gallbladder. No biliary ductal dilatation. PANCREAS: No acute finding SPLEEN: As above ADRENAL GLANDS: Unremarkable. KIDNEYS AND URETERS: Kidneys enhance symmetrically. No evidence of hydronephrosis or visible renal ca lculus. The ureters are unremarkable. There appear to be a few punctate renal calculi throughout bot h kidneys without evidence of obstruction. No definite ureteral calculi or hydronephrosis is seen. PELVIS BLADDER: Incompletely distended but grossly unremarkable. REPRODUCTIVE: Unremarkable prostate ABDOMEN & PELVIS STOMACH AND BOWEL: Stomach and small bowel are nondistended, no evidence of obstruction. The append ix is not readily seen. The candidate appendix does not show signs of inflammation. Moderate stool t hroughout colon without evidence of focal acute abnormality. There are several diverticula seen in th e sigmoid region. PERITONEUM/RETROPERITONEUM: No evidence of free air. There appears to be mild mesenteric edema and possible scant fluid in the right abdomen and small amount in the pelvis. VASCULATURE: Mild atherosclerotic calcifications are present throughout the abdominal aorta and its b ranches. No evidence of aortic aneurysm. LYMPH NODES: No gross evidence for lymphadenopathy. SOFT TISSUE/ABDOMINAL WALL: Small fat-containing left inguinal hernia. MUSCULOSKELETAL: No acute osseous abnormalities. IMPRESSION: 1. Punctate bilateral renal calculi. No ureteral stones or hydronephrosis. 2. Hepatic cirrhotic morphology, with evidence for portal hypertension. 3. Mild mesenteric edema with scant fluid in the right abdomen and small volume in the pelvis.
[2023-07-09 13:27] LABS: Platelet Count 50 k/uL (150-450)
[2023-07-09 14:23] VITALS: BP 122/76; PULSE 76; RESP 16; TEMP 98.7
== END 2023-07-09 14:07 | disposition home or self-care (01) ==
LOC: EC 09:52
DX: K70.30 Alcoholic cirrhosis of liver without ascites (principal); Z20.822 Contact with and (suspected) exposure to COVID-19
CPT/HCPCS: 36415; 93005; 80053; 82150; 83605; 83690; 85025; 81001; 87636; 71046; 74177; 99285; 96374; 96361 ×2; J1885; Q9967

== ENCOUNTER → 2023-07-21 | Outpatient (CLI) | payer BC ==
[2023-07-21 17:21] LABS: HCT 33.9 % (39.6-50.0); HGB 11.1 g/dL (13.0-17.0); MCH 28.9 pg (27.0-32.0); MCHC 32.7 g/dL (32.0-37.0); MCV 88.3 FL (80.0-97.0); Mean Platelet Volume 9.9 FL (9.5-12.2); NRBC Per 100 WBC 0 X 10*3/uL (0.00-0.01); Platelet Count 82 X 10*3/uL (140-440); RBC 3.84 X 10*6/uL (4.40-5.60); RDW 15.9 % (11.5-14.5); WBC 5.17 X 10*3/uL (4.50-10.00)
[2023-07-21 17:22] LABS: Elliptocytes 2+; Eosinophils # (M) 0.21 X 10*3/uL (0.04-0.35); Lymphocytes # (M) 1.09 X 10*3/uL (0.90-5.00); Neutrophils # (M) 3.67 X 10*3/uL (1.80-7.70); Neutrophils % (M) 71 %
[2023-07-21 17:27] LABS: Alpha Fetoprotein, Tumor Mkr <3.00 ng/mL (0.00-7.90)
[2023-07-21 18:38] LABS: ALT 41 U/L (10-49); AST 84 U/L (14-35); Albumin 3.2 g/dL (3.8-4.9); Albumin/Globulin Ratio 0.82 Ratio (1.60-3.17); Alkaline Phosphatase 187 U/L (41-126); Carbon Dioxide 21.9 mmol/L (21.6-31.8); Chloride 107 mmol/L (96-109); Globulin 3.9 g/dL (1.6-3.3); Glucose 110 mg/dL (70-110); Potassium 4.5 mmol/L (3.5-5.5); Sodium 141 mmol/L (135-145); Total Bilirubin 3.7 mg/dL (0.3-1.2); Total Protein 7.1 g/dL (6.2-8.2)
[2023-07-21 20:00] LABS: Hepatitis B Surface Antigen Nonreactive; Hepatitis C IgG Antibody Nonreactive
[2023-07-21 23:35] LABS: INR 1.4 sec (0.93-1.11); Prothrombin Time 14.8 sec (9.9-11.9)
== END | disposition home or self-care (01) ==
LOC: LABWHC1 09:41
PROVIDERS: ATTEND Internal Medicine Gastroenterology
DX: K70.30 Alcoholic cirrhosis of liver without ascites (principal)
CPT/HCPCS: 36415; 80053; 82105; 85025; 85610; 86803; 87340

== ENCOUNTER 2023-07-30 17:45 | Emergency (ER) | payer OTHER ==
[2023-07-30 18:15] LABS: Basophils % (A) 1 %; Eosinophils # (A) 0.2 k/uL (0-0.7); Eosinophils % (A) 2 %; HCT 32.5 % (39.0-53.0); HGB 11.2 gm/dL (13.0-17.5); Lymphocytes # (A) 1.6 k/uL (1.0-4.8); Lymphocytes % (A) 20 %; MCH 30.4 pg (25.0-35.0); MCHC 34.5 g/dL (31.0-37.0); MCV 88.2 fL (80.0-100.0); Mean Platelet Volume 8.6; Monocytes # (A) 0.6 k/uL (0-1.0); Monocytes % (A) 7 %; Neutrophils # (A) 5.2 k/uL (1.3-7.7); Neutrophils % (A) 68 %; RBC 3.69 m/uL (4.30-5.90); RDW 15.6 % (11.5-15.5); WBC 7.8 k/uL (3.8-10.6)
[2023-07-30 18:29] LABS: ALT 35 U/L (4-49); AST 66 U/L (17-59); African American GFR (CKD) >90 (>60 ml/min/1.73 sqM); Albumin 3.2 g/dL (3.5-5.0); Alkaline Phosphatase 132 U/L (38-126); Anion Gap 6 mmol/L; Blood Urea Nitrogen 12 mg/dL (9-20); Calcium 8.3 mg/dL (8.4-10.2); Carbon Dioxide 24 mmol/L (22-30); Chloride 105 mmol/L (98-107); Glucose 118 mg/dL (74-99); Non-African American GFR(CKD) >90 (>60 ml/min/1.73 sqM); Potassium 4.2 mmol/L (3.5-5.1); Sodium 135 mmol/L (137-145); Total Bilirubin 4.6 mg/dL (0.2-1.3); Total Protein 7.6 g/dL (6.3-8.2)
[2023-07-30 18:37] LABS: Platelet Count 83 k/uL (150-450)
--- NOTE | 2023-07-30 18:42 | XR ---
EXAMINATION TYPE: XR chest 2V DATE OF EXAM: 07/30/2023 6:17 PM CLINICAL INDICATION:Male, 42 years old with history of short of breath; [facility] COMPARISON: Chest radiographs from 07/09/2023 TECHNIQUE: XR chest 2V Frontal and lateral views of the chest. FINDINGS: Lungs/Pleura: There is no evidence of pleural effusion, focal consolidation, or pneumothorax. Pulmonary vascularity: Unremarkable. Heart/mediastinum: Cardiomediastinal silhouette is unremarkable. Musculoskeletal: No acute osseous pathology. Other findings: None IMPRESSION: No acute cardiopulmonary disease/process.
[2023-07-30] MEDS: IBUPROFEN 800 MG TAB PO STA (18:59)
[2023-07-30] MEDS: SODIUM CHLORIDE 0.9% 1,000 ML IV STA ×2 (19:00→21:09)
[2023-07-30 19:14] LABS: Appearance,Urine Cloudy (Clear); Bacteria,Urine Occasional /hpf; Bilirubin,Urine Negative (Negative); Blood,Urine Moderate (Negative); Color,Urine Yellow; Glucose,Urine (UA) Negative (Negative); Ketones,Urine Negative (Negative); Leukocyte Esterase,Urine Large (Negative); Mucus,Urine Occasional /hpf; Nitrite,Urine Negative (Negative); Protein,Urine Trace (Negative); RBC,Urine 91 /hpf (0-5); Specific Gravity,Urine 1.017 (1.001-1.035); Squamous Epithelial Cell,Urine <1 /hpf (0-4); WBC,Urine >182 /hpf (0-5)
[2023-07-30 19:15] LABS: INR 1.5 (<1.2); Partial Thromboplastin Time 28.5 sec (22.0-30.0); Prothrombin Time 15.1 sec (10.0-12.5)
--- NOTE | 2023-07-30 20:45 | ED ---
Fever HPI - General Chief Complaint: Fever Stated Complaint: fever, Time Seen by Provider: 07/30/23 18:24 Source: patient, family Limitations: no limitations - History of Present Illness Initial Comments: 42-year-old male with a past medical history significant for alcoholic cirrhosis of the liver presenting to the ED with a chief complaint of fever. Patient states he has had intermittent fevers for the past week. Also notes history of chronic cough however reports that this has been ongoing for the past few months and not worsening over the week. Denies any other upper respiratory symptoms. No chest pain shortness of breath. Denies abdominal pain. Denies changes in bowel or bladder habits. No other complaints at this time. - Related Data Home Medications Medication Instructions Recorded Confirmed Acetaminophen Tab [Tylenol Tab] 500 mg PO Q6HR PRN 07/09/23 07/09/23 Ibuprofen [Motrin Ib] 600 mg PO Q8H PRN 07/09/23 07/09/23 Previous Rx's Medication Instructions Recorded Cephalexin [Keflex] 500 mg PO Q6HR 7 Days #28 cap 07/30/23 Allergies Allergy/AdvReac Type Severity Reaction Status Date / Time No Known Allergies Allergy Verified 07/09/23 12:17 Review of Systems ROS Statement: Those systems with pertinent positive or pertinent negative responses have been documented in the HPI. ROS Other: All systems not noted in ROS Statement are negative. Past Medical History Past Medical History: No Reported History Additional Past Medical History / Comment(s): kidney stones, liver cirrhois History of Any Multi-Drug Resistant Organisms: None Reported Past Surgical History: Adenoidectomy, Hernia Repair, Orthopedic Surgery, Tonsillectomy Additional Past Surgical History / Comment(s): lithotripsy for kidney stones, Past Psychological History: No Psychological Hx Reported Smoking Status: Never smoker Past Alcohol Use History: Occasional Past Drug Use History: None Reported General Exam Limitations: no limitations General appearance: alert, in no apparent distress Eye exam: Present: scleral icterus Neck exam: Present: normal inspection Respiratory exam: Present: normal lung sounds bilaterally Cardiovascular Exam: Present: regular rate, normal rhythm GI/Abdominal exam: Present: soft Neurological exam: Present: alert, oriented X3 Skin exam: Present: warm, dry, other (Jaundice) Course Vital Signs 07/30/23 07/30/23 17:47 18:39 Temperature 101.3 F H 100.6 F H Pulse Rate 102 H 95 Respiratory 20 20 Rate Blood Pressure 129/74 120/78 O2 Sat by Pulse 99 99 Oximetry Medical Decision Making - Medical Decision Making Was pt. sent in by a medical professional or institution (, PA, SENIOR POLICY ANALYST, urgent care, hospital, or [facility]...) When possible be specific @ -No Did you speak to anyone other than the patient for history (EMS, parent, family, police, friend...)? What history was obtained from this source @ -Spoke to the patient's who reports that the patient has not had any alcohol for the past 6 months as instructed by his equipment installation professional. Did you review nursing and triage notes (agree or disagree)? Why? @ -I reviewed and agree with nursing and triage notes Were old charts reviewed (outside hosp., previous admission, EMS record, old EKG, old radiological studies, urgent care reports/EKG's, [facility] records)? Report findings @ -Prior charts reviewed showing history of hematuria. Differential Diagnosis (chest pain, altered mental status, abdominal pain women, abdominal pain men, vaginal bleeding, weakness, fever, dyspnea, syncope, headache, dizziness, GI bleed, back pain, seizure, CVA, palpatations, mental health, musculoskeletal)? @ -Differential Fever: Pneumonia, viral URI, endocarditis, myocarditis, pericarditis, otitis, sinusitis, peritonsillar Abscess, retropharyngeal Abscess, epiglottitis, peritonitis, appendicitis, Amarilis cystitis, diverticulitis, hepatitis, colitis, UTI, PID, TOA, pyelonephritis, prostatitis, epididymitis, meningitis, encephalitis, pulmonary embolism, CVA, thyroid storm, pancreatitis, adrenal crisis, cavernous sinus thrombosis, this is not meant to be an all-inclusive list. EKG interpreted by me (3pts min.). @ -None X-rays interpreted by me (1pt min.). @ -Chest x-ray interpreted me showing no evidence of pneumonia or other acute process. CT interpreted by me (1pt min.). @ -None done U/S interpreted by me (1pt. min.). @ -None done What testing was considered but not performed or refused? (CT, X-rays, U/S, labs)? Why? @ -None What meds were considered but not given or refused? Why? @ -None Did you discuss the management of the patient with other professionals (professionals i.e. , PA, SENIOR POLICY ANALYST, lab, RT, psych nurse, social problems specialist, electrical checkout mechanic, teacher, chief accounting officer, window caser)? Give summary @ -No Was smoking cessation discussed for >3mins.? @ -No Was critical care preformed (if so, how long)? @ -No Were there social determinants of health that impacted care today? How? (Homelessness, low income, unemployed, alcoholism, drug addiction, transportation, low edu. Level, literacy, decrease access to med. care, senior care, rehab)? @ -No Was there de-escalation of care discussed even if they declined (Discuss DNR or withdrawal of care, Hospice)? DNR status @ -No What co-morbidities impacted this encounter? (DM, HTN, Smoking, COPD, CAD, Cancer, CVA, ARF, Chemo, Hep., AIDS, mental health diagnosis, sleep apnea, morbid obesity)? @ -Liver disease Was patient admitted / discharged? Hospital course, mention meds given and route, prescriptions, significant lab abnormalities, going to OR and other pertinent info. @ -Discharge 42-year-old male presenting to the ED with complaints of fever for the past week. Has no other symptoms at this time. Laboratory studies reviewed. CBC shows no evidence of leukocytosis with a white count of 7.8. Patient does have some slight derangements in his coagulation panel consistent with history of advanced liver disease. Lactic acid elevated 2.8. Bilirubin elevated at 4.6. AST at 66 alk phos at 132. UA does show evidence of infection with greater than 182 white blood cells. Does also have 91 RBCs. Review of prior urine samples does show history of RBCs in the urine. Patient notes he has not followed up with urology yet for this. Patient provided ceftriaxone and azithromycin to cover for gonorrhea and chlamydia here in the ED as well as to cover for urinary tract infection. Provided prescription for Keflex. Urine culture obtained. Discharged home in stable condition. Discussed strict return precautions with patient and family who verbalized agreement. Undiagnosed new problem with uncertain prognosis? @ -No Drug Therapy requiring intensive monitoring for toxicity (Heparin, Nitro, Insulin, Cardizem)? @ -No Were any procedures done? @ -No Diagnosis/symptom? @ -Urinary tract infection Acute, or Chronic, or Acute on Chronic? @ -Acute Uncomplicated (without systemic symptoms) or Complicated (systemic symptoms)? @ -Uncomplicated Side effects of treatment? @ -No Exacerbation, Progression, or Severe Exacerbation? @ -No Poses a threat to life or bodily function? How? (Chest pain, [place], [place], pneumonia, PE, COPD, DKA, ARF, appy, cholecystitis, CVA, Diverticulitis, Homicidal, Suicidal, threat to staff... and all critical care pts) @ -No - Lab Data Result diagrams: 07/30/23 18:01 07/30/23 18:01 Lab Results 07/30/23 07/30/23 07/30/23 Range/Units 18: 18: 18: WBC 7.8 (3.8-10.6) k/uL RBC 3.69 L (4.30-5.90) m/uL Hgb 11.2 L (13.0-17.5) gm/dL Hct 32.5 L (39.0-53.0) % MCV 88.2 (80.0-100.0) fL MCH 30.4 (25.0-35.0) pg MCHC 34.5 (31.0-37.0) g/dL RDW 15.6 H (11.5-15.5) % Plt Count 83 L D (150-450) k/uL MPV 8.6 Neutrophils % 68 % Lymphocytes % 20 % Monocytes % 7 % Eosinophils % 2 % Basophils % 1 % Neutrophils # 5.2 (1.3-7.7) k/uL Lymphocytes # 1.6 (1.0-4.8) k/uL Monocytes # 0.6 (0-1.0) k/uL Eosinophils # 0.2 (0-0.7) k/uL Basophils # 0.0 (0-0.2) k/uL PT (10.0-12.5) sec INR (<1.2) APTT (22.0-30.0) sec Sodium 135 L (137-145) mmol/L Potassium 4.2 (3.5-5.1) mmol/L Chloride 105 (98-107) mmol/L Carbon Dioxide 24 (22-30) mmol/L Anion Gap 6 mmol/L BUN 12 (9-20) mg/dL Creatinine 0.80 (0.66-1.25) mg/dL Est GFR (CKD-EPI)AfAm >90 (>60 ml/min/1.73 sqM) Est GFR (CKD-EPI)NonAf >90 (>60 ml/min/1.73 sqM) Glucose 118 H (74-99) mg/dL Lactic Ac Sepsis Rflx Plasma Lactic Acid Allen 2.8 H* (0.7-2.0) mmol/L Calcium 8.3 L (8.4-10.2) mg/dL Total Bilirubin 4.6 H (0.2-1.3) mg/dL AST 66 H (17-59) U/L ALT 35 (4-49) U/L Alkaline Phosphatase 132 H (38-126) U/L Ammonia (<30) umol/L Troponin I (0.000-0.034) ng/mL Total Protein 7.6 (6.3-8.2) g/dL Albumin 3.2 L (3.5-5.0) g/dL Urine Color Urine Appearance (Clear) Urine pH (5.0-8.0) Ur Specific [place] (1.001-1.035) Urine Protein (Negative) Urine Glucose (UA) (Negative) Urine Ketones (Negative) Urine Blood (Negative) Urine Nitrite (Negative) Urine Bilirubin (Negative) Urine Urobilinogen (<2.0) mg/dL Ur Leukocyte Esterase (Negative) Urine RBC (0-5) /hpf Urine WBC (0-5) /hpf Ur Squamous Epith Cells (0-4) /hpf Urine Bacteria (None) /hpf Urine Mucus (None) /hpf Influenza Type A (PCR) (Not Detectd) Influenza Type B (PCR) (Not Detectd) RSV (PCR) (Not Detectd) SARS-CoV-2 (PCR) (Not Detectd) 07/30/23 07/30/23 07/30/23 Range/Units 18:02 18:02 18:32 WBC (3.8-10.6) k/uL RBC (4.30-5.90) m/uL Hgb (13.0-17.5) gm/dL Hct (39.0-53.0) % MCV (80.0-100.0) fL MCH (25.0-35.0) pg MCHC (31.0-37.0) g/dL RDW (11.5-15.5) % Plt Count (150-450) k/uL MPV Neutrophils % % Lymphocytes % % Monocytes % % Eosinophils % % Basophils % % Neutrophils # (1.3-7.7) k/uL Lymphocytes # (1.0-4.8) k/uL Monocytes # (0-1.0) k/uL Eosinophils # (0-0.7) k/uL Basophils # (0-0.2) k/uL PT (10.0-12.5) sec INR (<1.2) APTT (22.0-30.0) sec Sodium (137-145) mmol/L Potassium (3.5-5.1) mmol/L Chloride (98-107) mmol/L Carbon Dioxide (22-30) mmol/L Anion Gap mmol/L BUN (9-20) mg/dL Creatinine (0.66-1.25) mg/dL Est GFR (CKD-EPI)AfAm (>60 ml/min/1.73 sqM) Est GFR (CKD-EPI)NonAf (>60 ml/min/1.73 sqM) Glucose (74-99) mg/dL Lactic Ac Sepsis Rflx Y Plasma Lactic Acid Allen (0.7-2.0) mmol/L Calcium (8.4-10.2) mg/dL Total Bilirubin (0.2-1.3) mg/dL AST (17-59) U/L ALT (4-49) U/L Alkaline Phosphatase (38-126) U/L Ammonia (<30) umol/L Troponin I <0.012 (0.000-0.034) ng/mL Total Protein (6.3-8.2) g/dL Albumin (3.5-5.0) g/dL Urine Color Urine Appearance (Clear) Urine pH (5.0-8.0) Ur Specific [place] (1.001-1.035) Urine Protein (Negative) Urine Glucose (UA) (Negative) Urine Ketones (Negative) Urine Blood (Negative) Urine Nitrite (Negative) Urine Bilirubin (Negative) Urine Urobilinogen (<2.0) mg/dL Ur Leukocyte Esterase (Negative) Urine RBC (0-5) /hpf Urine WBC (0-5) /hpf Ur Squamous Epith Cells (0-4) /hpf Urine Bacteria (None) /hpf Urine Mucus (None) /hpf Influenza Type A (PCR) Not Detected (Not Detectd) Influenza Type B (PCR) Not Detected (Not Detectd) RSV (PCR) Not Detected (Not Detectd) SARS-CoV-2 (PCR) Not Detected (Not Detectd) 07/30/23 07/30/23 07/30/23 Range/Units 18:50 18:50 18:50 WBC (3.8-10.6) k/uL RBC (4.30-5.90) m/uL Hgb (13.0-17.5) gm/dL Hct (39.0-53.0) % MCV (80.0-100.0) fL MCH (25.0-35.0) pg MCHC (31.0-37.0) g/dL RDW (11.5-15.5) % Plt Count (150-450) k/uL MPV Neutrophils % % Lymphocytes % % Monocytes % % Eosinophils % % Basophils % % Neutrophils # (1.3-7.7) k/uL Lymphocytes # (1.0-4.8) k/uL Monocytes # (0-1.0) k/uL Eosinophils # (0-0.7) k/uL Basophils # (0-0.2) k/uL PT 15.1 H (10.0-12.5) sec INR 1.5 H (<1.2) APTT 28.5 (22.0-30.0) sec Sodium (137-145) mmol/L Potassium (3.5-5.1) mmol/L Chloride (98-107) mmol/L Carbon Dioxide (22-30) mmol/L Anion Gap mmol/L BUN (9-20) mg/dL Creatinine (0.66-1.25) mg/dL Est GFR (CKD-EPI)AfAm (>60 ml/min/1.73 sqM) Est GFR (CKD-EPI)NonAf (>60 ml/min/1.73 sqM) Glucose (74-99) mg/dL Lactic Ac Sepsis Rflx Plasma Lactic Acid Allen (0.7-2.0) mmol/L Calcium (8.4-10.2) mg/dL Total Bilirubin (0.2-1.3) mg/dL AST (17-59) U/L ALT (4-49) U/L Alkaline Phosphatase (38-126) U/L Ammonia 37 H (<30) umol/L Troponin I (0.000-0.034) ng/mL Total Protein (6.3-8.2) g/dL Albumin (3.5-5.0) g/dL Urine Color Yellow Urine Appearance Cloudy (Clear) Urine pH 6.0 (5.0-8.0) Ur Specific [place] 1.017 (1.001-1.035) Urine Protein Trace H (Negative) Urine Glucose (UA) Negative (Negative) Urine Ketones Negative (Negative) Urine Blood Moderate H (Negative) Urine Nitrite Negative (Negative) Urine Bilirubin Negative (Negative) Urine Urobilinogen 12.0 (<2.0) mg/dL Ur Leukocyte Esterase Large H (Negative) Urine RBC 91 H (0-5) /hpf Urine WBC >182 H (0-5) /hpf Ur Squamous Epith Cells <1 (0-4) /hpf Urine Bacteria Occasional H (None) /hpf Urine Mucus Occasional H (None) /hpf Influenza Type A (PCR) (Not Detectd) Influenza Type B (PCR) (Not Detectd) RSV (PCR) (Not Detectd) SARS-CoV-2 (PCR) (Not Detectd) Disposition Clinical Impression: Urinary tract infection Disposition: HOME SELF-CARE Condition: Good Additional Instructions: Please return to the Emergency Department if symptoms worsen or any other concerns. Please follow-up with your primary care provider Prescriptions: Cephalexin [Keflex] 500 mg PO Q6HR 7 Days #28 cap Is patient prescribed a controlled substance at d/c from ED?: No Referrals: None,Stated [Primary Care Provider] - 1-2 days Ike Lee MD [STAFF PHYSICIAN] - 1-2 days Time of Disposition: 21:04
[2023-07-30] MEDS: cefTRIAXone 1,000 MG VIAL (IM USE) IM STA (21:08)
[2023-07-30] MEDS: AZITHROMYCIN 250 MG TAB PO STA (21:08)
[2023-07-30 22:20] VITALS: BP 121/75; PULSE 91; RESP 18; TEMP 98.9
[2023-07-31 14:49] LABS: C. trachomatis,PCR Negative (Negative); N. gonorrhoeae,PCR Negative (Negative)
== END 2023-07-30 22:00 | disposition home or self-care (01) ==
LOC: EC 17:45
DX: N39.0 Urinary tract infection, site not specified (principal); B95.61 Methicillin susceptible Staphylococcus aureus infection as the cause of diseases classified elsewhere; R74.02 Elevation of levels of lactic acid dehydrogenase [LDH]; R17 Unspecified jaundice; Z20.822 Contact with and (suspected) exposure to COVID-19
CPT/HCPCS: 36415; 80053; 82140; 83605; 84484; 85025; 85610; 85730; 81001; 87040; 87491; 87591; 87086; 87077; 87186; 87636; 71046; 99284; 96372; J0696